=== PATIENT | male | born 1980 | race African-American/Black ===

== ENCOUNTER 2019-03-07 18:59 | Inpatient (IN) | payer SELFPAY ==
[~2019-03-07] VITALS: Ht 172.7 cm; Wt 59.4 kg
[2019-03-07] MEDS ORDERED: MULTIVIT INFUSN,ADULT 4,VIT K 10 ML, THIAMINE INJ 100 MG, FOLIC ACID INJ 1 MG in IV NOR... IV ONE (19:15)
[2019-03-07] MEDS ORDERED: HALOPERIDOL LACTATE 5 MG/ML VIAL. ONE (19:17)
[2019-03-07] MEDS ORDERED: diphenhydrAMINE 50 MG/ML VIAL ONE (19:17)
[2019-03-07 19:40] LABS: BASO # 0.1 x10^3/uL (0.0-0.2); BASO % 1 % (0-3); EOS # 0.1 x10^3/uL (0.0-0.7); EOS % 1 % (0-3); HEMATOCRIT 49.4 % (39.0-53.0); HEMOGLOBIN 16.4 g/dL (13.0-17.5); LYMPH # 2.5 x10^3/uL (1.0-4.8); LYMPH % 31 % (24-48); MEAN CORPUSCULAR HEMOGLOBIN 30 pg (25-35); MEAN CORPUSCULAR HGB CONC 33 g/dL (31-37); MEAN CORPUSCULAR VOLUME 90 fL (79-100); MONO # 0.6 x10^3/uL (0.0-1.1); MONO % 7 % (0-9); NEUT # 4.9 x10^3uL (1.8-7.7); NEUT % 60 % (31-73); PLATELET COUNT 358 x10^3/uL (140-400); WHITE BLOOD COUNT 8.1 x10^3/uL (4.0-11.0)
[2019-03-07 19:54] LABS: CALCIUM 9.5 mg/dL (8.5-10.1); GFR 101.2; POTASSIUM 4.6 mmol/L (3.5-5.1)
[2019-03-07 20:00] LABS: ALBUMIN 4.3 g/dL (3.4-5.0); ALBUMIN/GLOBULIN RATIO 0.9 (1.0-1.7); TOTAL BILIRUBIN 0.3 mg/dL (0.2-1.0); TOTAL PROTEIN 8.9 g/dL (6.4-8.2)
[2019-03-07] MEDS ORDERED: diphenhydrAMINE 50 MG/ML VIAL IM ONE (20:00)
[2019-03-07] MEDS ORDERED: HALOPERIDOL LACTATE 5 MG/ML VIAL. IM ONE (20:00)
[2019-03-07] MEDS ORDERED: HALOPERIDOL LACTATE 5 MG/ML VIAL. IVP ONE (20:30)
[2019-03-07] MEDS ORDERED: diphenhydrAMINE 50 MG/ML VIAL IVP ONE (20:30)
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
[2019-03-07] MEDS ORDERED: ONDANSETRON PF 4 MG/2 ML VIAL. IV PRN (22:00)
[2019-03-07] MEDS ORDERED: IV DEXTROSE 5 %-0.45 % NACL 1,000 ML IV ONE (22:00)
[2019-03-07 23:30] VITALS: BP 104/63
[2019-03-07] MEDS ORDERED: LORazepam 1 MG TABLET PO PRN ×2 (23:30)
[2019-03-07] MEDS ORDERED: HALOPERIDOL LACTATE 5 MG/ML VIAL. IVP PRN (23:30)
[2019-03-07] MEDS ORDERED: diphenhydrAMINE 50 MG/ML VIAL IVP PRN (23:30)
[2019-03-07] MEDS ORDERED: cloNIDine HCL 0.1 MG TABLET PO PRN (23:30)
[2019-03-07 23:39] LABS: DIRECT BILIRUBIN 0.1 mg/dL (0.0-0.2)
[2019-03-08 03:25] VITALS: BP 87/53
[2019-03-08 04:01] LABS: BASO % 1 % (0-3); EOS # 0.2 x10^3/uL (0.0-0.7); EOS % 3 % (0-3); HEMATOCRIT 40.7 % (39.0-53.0); HEMOGLOBIN 13.4 g/dL (13.0-17.5); LYMPH % 35 % (24-48); MEAN CORPUSCULAR HEMOGLOBIN 30 pg (25-35); MEAN CORPUSCULAR HGB CONC 33 g/dL (31-37); MEAN CORPUSCULAR VOLUME 90 fL (79-100); MONO # 0.6 x10^3/uL (0.0-1.1); MONO % 10 % (0-9); NEUT % 52 % (31-73); PLATELET COUNT 297 x10^3/uL (140-400); RED BLOOD COUNT 4.54 x10^6/uL (4.30-5.70); RED CELL DISTRIBUTION WIDTH 13.6 % (11.5-14.5); WHITE BLOOD COUNT 5.8 x10^3/uL (4.0-11.0)
[2019-03-08 04:28] LABS: CALCIUM 8.1 mg/dL (8.5-10.1); CREATININE 0.9 mg/dL (0.7-1.3); GFR 114.3; POTASSIUM 3.6 mmol/L (3.5-5.1)
[2019-03-08 07:25] VITALS: BP 108/64
[2019-03-08 08:39] LABS: AMPHETAMINE/METHAMPHETAMINE NEG (NEG); BARBITURATES NEG (NEG); BENZODIAZEPINES NEG (NEG); BILIRUBIN,URINE NEGATIVE (NEG); CANNABINOIDS NEG (NEG); CLARITY,URINE CLEAR; COLOR,URINE YELLOW; METHADONE NEG (NEG); NITRITE,URINE NEGATIVE (NEG); OPIATES NEG (NEG); PHENCYCLIDINE POS (NEG); PROTEIN,URINE NEGATIVE (NEG-TRACE); UROBILINOGEN,URINE 0.2 mg/dL (0.2 mg/dL)
[2019-03-08 08:44] LABS: COCAINE POS (NEG)
[2019-03-08 08:53] LABS: BACTERIA,URINE 0 /HPF (0-FEW); RBC,URINE 0 /HPF (0-2); WBC,URINE OCC /HPF (0-4)
[2019-03-08] MEDS ORDERED: MULTIVITAMIN with MINERAL TABLET. PO SCH (09:00)
[2019-03-08] MEDS ORDERED: FOLIC ACID 1 MG TABLET. PO SCH (09:00)
[2019-03-08] MEDS ORDERED: MULTIVIT INFUSN,ADULT 4,VIT K 10 ML, THIAMINE INJ 100 MG, FOLIC ACID INJ 1 MG in IV NOR... IV SCH (09:00)
[2019-03-08] MEDS ORDERED: THIAMINE INJ 100 MG in IV DEXTROSE 5% 50 ML IV SCH (09:00)
--- NOTE | 2019-03-08 09:50 | RAD ---
CT head without contrast dated 03/07/2019. No comparison available. CLINICAL INDICATION: Altered mental status. TECHNIQUE: Contiguous axial imaging the head was performed from skull base to vertex. No contrast administered. One or more of the following individualized dose reduction techniques were utilized for this examination: 1. Automated exposure control 2. Adjustment of the mA and/or kV according to patient size 3. Use of iterative reconstruction technique FINDINGS: Ventricles and sulci are within normal limits for age. No midline shift or mass effect. Brain parenchyma is of normal attenuation. No hemorrhage or extra-axial collection. Posterior fossa and brainstem unremarkable. Visualized paranasal sinuses and mastoid air cells are clear. No apparent calvarial abnormality. IMPRESSION: No evidence of acute intracranial abnormality. Electronically signed by: Matthew Barba MD (03/07/2019 9:24 PM) [facility]
[2019-03-08 11:06] VITALS: BP 126/79
--- NOTE | 2019-03-08 13:04 | PDOC1 ---
DATE OF ADMISSION Date of Admission 03/07/19 DATE OF DISCHARGE Discharge Date 03/08/19 PROBLEM LIST Problems: (1) Alcohol intoxication (2) Altered mental state (3) Substance abuse CONSULTS Consults none PROCEDURES Procedures none LABS Labs Laboratory Tests Test 03/07/19 19:11 03/07/19 19:20 03/07/19 22:29 03/08/19 03:25 Glucose (Fingerstick) 73 mg/dL (70-99) 72 mg/dL (70-99) White Blood Count 8.1 x10^3/uL (4.0-11.0) 5.8 x10^3/uL (4.0-11.0) Red Blood Count 5.50 x10^6/uL (4.30-5.70) 4.54 x10^6/uL (4.30-5.70) Hemoglobin 16.4 g/dL (13.0-17.5) 13.4 g/dL (13.0-17.5) Hematocrit 49.4 % (39.0-53.0) 40.7 % (39.0-53.0) Mean Corpuscular Volume 90 fL (79-100) 90 fL (79-100) Mean Corpuscular Hemoglobin 30 pg (25-35) 30 pg (25-35) Mean Corpuscular Hemoglobin Concent 33 g/dL (31-37) 33 g/dL (31-37) Red Cell Distribution Width 14.0 % (11.5-14.5) 13.6 % (11.5-14.5) Platelet Count 358 x10^3/uL (140-400) 297 x10^3/uL (140-400) Neutrophils (%) (Auto) 60 % (31-73) 52 % (31-73) Lymphocytes (%) (Auto) 31 % (24-48) 35 % (24-48) Monocytes (%) (Auto) 7 % (0-9) 10 % (0-9) Eosinophils (%) (Auto) 1 % (0-3) 3 % (0-3) Basophils (%) (Auto) 1 % (0-3) 1 % (0-3) Neutrophils # (Auto) 4.9 x10^3uL (1.8-7.7) 3.0 x10^3uL (1.8-7.7) Lymphocytes # (Auto) 2.5 x10^3/uL (1.0-4.8) 2.0 x10^3/uL (1.0-4.8) Monocytes # (Auto) 0.6 x10^3/uL (0.0-1.1) 0.6 x10^3/uL (0.0-1.1) Eosinophils # (Auto) 0.1 x10^3/uL (0.0-0.7) 0.2 x10^3/uL (0.0-0.7) Basophils # (Auto) 0.1 x10^3/uL (0.0-0.2) 0.0 x10^3/uL (0.0-0.2) Sodium Level 142 mmol/L (136-145) 141 mmol/L (136-145) Potassium Level 4.6 mmol/L (3.5-5.1) 3.6 mmol/L (3.5-5.1) Chloride Level 103 mmol/L (98-107) 106 mmol/L (98-107) Carbon Dioxide Level 28 mmol/L (21-32) 25 mmol/L (21-32) Anion Gap 11 (6-14) 10 (6-14) Blood Urea Nitrogen 11 mg/dL (8-26) 11 mg/dL (8-26) Creatinine 1.0 mg/dL (0.7-1.3) 0.9 mg/dL (0.7-1.3) Estimated GFR (Cockcroft-Gault) 101.2 114.3 BUN/Creatinine Ratio 11 (6-20) Glucose Level 89 mg/dL (70-99) 76 mg/dL (70-99) Calcium Level 9.5 mg/dL (8.5-10.1) 8.1 mg/dL (8.5-10.1) Total Bilirubin 0.3 mg/dL (0.2-1.0) Direct Bilirubin 0.1 mg/dL (0.0-0.2) Aspartate Amino Transf (AST/SGOT) 33 U/L (15-37) Alanine Aminotransferase (ALT/SGPT) 35 U/L (16-63) Alkaline Phosphatase 49 U/L (46-116) Total Protein 8.9 g/dL (6.4-8.2) Albumin 4.3 g/dL (3.4-5.0) Albumin/Globulin Ratio 0.9 (1.0-1.7) Thyroid Stimulating Hormone (TSH) 1.631 uIU/mL (0.358-3.74) Ethyl Alcohol Level 206 mg/dL (0-10) Test 03/08/19 08:15 Urine Collection Type Clean catch Urine Color Yellow Urine Clarity Clear Urine pH 5.0 Urine Specific [place] 1.015 Urine Protein Negative mg/dL (NEG-TRACE) Urine Glucose (UA) Negative mg/dL (NEG) Urine Ketones (Stick) Negative mg/dL (NEG) Urine Blood Negative (NEG) Urine Nitrite Negative (NEG) Urine Bilirubin Negative (NEG) Urine Urobilinogen Dipstick 0.2 mg/dL (0.2 mg/dL) Urine Leukocyte Esterase Negative (NEG) Urine RBC 0 /HPF (0-2) Urine WBC Occ /HPF (0-4) Urine Bacteria 0 /HPF (0-FEW) Urine Mucus Mod /LPF Urine Opiates Screen Neg (NEG) Urine Methadone Screen Neg (NEG) Urine Barbiturates Neg (NEG) Urine Phencyclidine Screen Pos (NEG) Urine Amphetamine/Methamphetamine Neg (NEG) Urine Benzodiazepines Screen Neg (NEG) Urine Cocaine Screen Pos (NEG) Urine Cannabinoids Screen Neg (NEG) Urine Ethyl Alcohol Pos (NEG) MEDICATIONS Medications Medications reviewed and reconciled for discharge. CHEIF COMPLAINT Cheif Complaint found by family with altered mental state, called EMS, brought to ER PAST MEDICAL HISTORY PMH substance and alcohol abuse with hx of prior seizure and Afib/RVR but not currently on treatment for either which were apparently caused in the past by drug use PAST SURGICAL HISTORY PSH none SOCIAL HISTORY positive for alcohol, tobacco, PCP, cocaine abuse FAMILY HISTORY FH alcoholism ALLERGIES Allergies Allergies Coded Allergies Type Severity Reaction Last Updated Verified No Known Drug Allergies 02/24/15 No MEDICATIONS Meds Medications reviewed. REVIEW OF SYSTEMS ROS A 14 point ROS was completed with the following noted as positive: Other systems reviewed and negative. PHYSICAL EXAM Subjective He recalls ambulance ride to ER, denies any acute symptoms Objective A&O, NAD HEENT: lip piercing, normal conjunctiva, Head: NC/AT Neck: supple Heart: RRR no murmur, normal S1,S2 Lungs: CTA, no wheezes, no rhonchi Abd: soft and non tender Ext: no C/C/E Neuro: non focal MS: no joint or muscle pain Psych: behavior normal Vital Signs Vital Signs Date Time Temp Pulse Resp B/P (MAP) Pulse Ox O2 Delivery O2 Flow Rate FiO2 03/08/19 11:06 97.9 69 18 126/79 (95) 99 Room Air 97.9 Assessment encephalopathy from illicit drug and alcohol use - PCP, cocaine and alcohol, back to baseline, received Banana bag, Haldol, IVF [facility] NOTE [facility] Note He "woke up this am after coming in with altered mental state and is cognizant and without acute findings, was referred to drug/alcohol rehab FOLLOW UP F/U prn with Dr. Cates who he claims is his PCP to establish care, he is not in our office computer DISPOSITION Dispo home Problem Qualifiers (1) Alcohol intoxication: Complication of substance-induced condition: with delirium Qualified Codes: F10.921 - Alcohol use, unspecified with intoxication delirium (2) Altered mental state: Altered mental status type: transient alteration of awareness Qualified Codes: R40.4 - Transient alteration of awareness Oh MANLEY MD March 08, 2019 13:04
--- NOTE | 2019-03-08 13:06 | PDOC ---
Provider Note Provider Note H&P and Dc summary combined Oh MANLEY MD March 08, 2019 13:06
--- NOTE | 2019-03-08 13:07 | NUR ---
SW consulted for ETOH use. SW phoned PAT team for assessment and Pt seen by Jacob avila. Pt and family is provided with resources for OP services and AA meetings. RN notified.
--- NOTE | 2019-03-08 14:57 | NUR ---
Pt discharged to home with mom. All info given on discharge papers re: detox and resources available in the area. Mom and pt verbalized understanding.
== END 2019-03-08 15:00 | disposition home or self-care (01) | DRG 72 ==
LOC: ER 18:59 → 6 SOUTH 22:40
PROVIDERS: ADMIT Family Medicine; ATTEND Family Medicine
DX: G93.40 Encephalopathy, unspecified (principal); F10.129 Alcohol abuse with intoxication, unspecified; F14.10 Cocaine abuse, uncomplicated; I48.91 Unspecified atrial fibrillation
CPT/HCPCS: 36415; 70450; 80048; 80053; 80307; 81001; 82248; 82962; 84443; 85025; 96365; 96375; G0480; J1200; J1630; J2060; J7030; 99285-25